=== PATIENT | male | born 1965 | race Caucasian/White ===

== ENCOUNTER 2018-07-16 20:48 | Emergency (ER) | payer SELFPAY ==
--- NOTE | 2018-07-16 21:20 | PDOC ---
Rapid Medical Evaluation Chief Complaint: Pain, Acute Time Seen by Provider: 07/16/18 21:17 Medical Evaluation: 07/16/18 21:18 52 YEAR OLD male with right neck pain radiating to right shoulder x 1 month. PE; patient alert ox3. no midline tenderness, A: neck pain P: patient to the ER for further management of care. Discharge Disposition - Diagnosis Neck pain on right side - Referrals - Patient Instructions - Post Discharge Activity
[2018-07-16 21:21] VITALS: BP 140/100; PULSE 78; TEMP 97; BMI 27.2
--- NOTE | 2018-07-16 22:05 | PDOC ---
History of Present Illness - General Chief Complaint: Pain, Acute Stated Complaint: Head/Neck problem Time Seen by Provider: 07/16/18 21:17 History Source: Patient, Significant Other () - History of Present Illness Initial Comments: 07/16/18 22:10 52 year old male with right sided neck pain radiating to right shoulder for 1 month. as per patient has been exercising and lifting weights. denies numbness or tingling to the extremity . no midline tenderness Past History - Past Medical History Allergies/Adverse Reactions: Allergies Allergy/AdvReac Type Severity Reaction Status Date / Time No Known Allergies Allergy Verified 07/16/18 21:20 Home Medications: Ambulatory Orders Ibuprofen 800 mg PO TID PRN #14 tablet 07/16/18 - Suicide/Smoking/Psychosocial Hx Smoking History: Never smoked Have you smoked in the past 12 months: No Information on smoking cessation initiated: No Hx Alcohol Use: No Drug/Substance Use Hx: No Review of Systems - Review of Systems Able to Perform ROS?: Yes Is the patient limited Micronesian proficient: No Constitutional: No: Symptoms Reported, See HPI, Chills, Diaphoresis, Fever, Loss of Appetite, Malaise, Night Sweats, Weakness, Weight Stable, Unintentional Wgt. Loss, Unexplained wgt Loss, Other Musculoskeletal: Yes: Neck Pain (lateral nect pain) *Physical Exam - Vital Signs Last Vital Signs Temp Pulse Resp BP Pulse Ox 97.0 F L 78 16 140/100 100 07/16/18 21:18 07/16/18 21:18 07/16/18 21:18 07/16/18 21:18 07/16/18 21:18 - Physical Exam General Appearance: Yes: Appropriately Dressed Neck: positive: Tender lateral (right lateral tenderness, full rom to right shoulder) Extremity: positive: Normal Capillary Refill, Normal Inspection, Normal Range of Motion Integumentary: positive: Normal Color, Dry, Warm Neurologic: positive: Fully Oriented, Alert, Normal Mood/Affect Medical Decision Making - Medical Decision Making 07/16/18 22:12 A: musculoskeletal neck pain P: toradol may need outpatient PT. will refer to ortho *DC/Admit/Observation/Transfer Diagnosis at time of Disposition: Neck pain on right side - Discharge Dispostion Disposition: HOME - Prescriptions Prescriptions: Ibuprofen 800 mg PO TID PRN #14 tablet PRN Reason: Moderate Pain - Referrals Referrals: Agustin,Jovanny I, MD [Staff Physician] - Call tomorrow - Patient Instructions Printed Discharge Instructions: DI for Musculoskeletal Pain Additional Instructions: apply ice/ heat to the area, take ibuprofen every 6-8 hours as needed for pain. follow up with orthopedic doctor as soon as possible. return to the ER for if symptoms worsen. - Post Discharge Activity Forms/Work/School Notes: Back to Work
[2018-07-16] MEDS ORDERED: KETOROLAC TROMETHAMINE 30 MG/1 ML VIAL IM ONE (22:10)
[2018-07-16] MEDS ORDERED: KETOROLAC TROMETHAMINE 30 MG/1 ML VIAL ONE (22:26)
== END 2018-07-16 22:46 | disposition home or self-care (01) ==
LOC: JER 20:48
PROC: 3E0233Z Introduction of Anti-inflammatory into Muscle, Percutaneous Approach (ICD-10-PCS; principal; 2018-07-16)
DX: M54.2 Cervicalgia (principal)
CPT/HCPCS: 99281-25